=== PATIENT | female | born 1960 | race Caucasian/White ===

== ENCOUNTER 2017-01-02 09:31 | Outpatient (CLI) | payer BC ==
[~2017-01-02] VITALS: Ht 172.7 cm; Wt 104.5 kg
[2017-01-02] VITALS (14 sets, daily range): BP systolic 104–155; BP diastolic 68–101; PULSE 80–100
[~2017-01-02 09:31] MED LIST: ACTIVELLA TABLE1 TAB PO; ASPIRIN 81M81 MG/TA2 PO; CRESTOR5 MG PO; CYMBALTA 60MG60 MG PO; DARVOCET-N-101 UDTAB PO; EFFEXOR 75M75 MG/TAB PO; FETZIMA20 PO; FLEXERIL 1010 MG/TAB PO; FLOMAX 0.40.4 MG/CAP PO; FLONASE NASAL S16 GM NS; IMITREX100 MG PO; KLONOPIN 0.5MG0.5 MG PO; KLONOPIN WAFER0.5 MG PO; LIDODERM PATCH TP; LISINOPRIL/HCTZ1 TA2 PO; LORTAB 5/500 501 TAB PO; METOPROLOL SUCC25 MG PO; NORCO 325 MG-51 TAB PO; NORVASC 5MG5 MG/TAB PO; PREMPRO 0.45 MG1 TAB PO; PRINIVIL20 MG PO; PROTONIX 40MG T40 MG PO; PYRIDIUM 100MG100 MG PO; VESICARE10 MG PO; VICODIN PO
== END 2017-01-02 15:13 | disposition home or self-care (01) ==
LOC: COL.RAD 09:31
DX: J95.811 Postprocedural pneumothorax (principal); R91.8 Other nonspecific abnormal finding of lung field; Z85.820 Personal history of malignant melanoma of skin; Z85.3 Personal history of malignant neoplasm of breast; Z87.891 Personal history of nicotine dependence

== ENCOUNTER → 2017-04-09 | Outpatient (CLI) | payer BC | LOC: COL.RAD 11:01 | DX: M25.531 Pain in right wrist (principal); M25.831 Other specified joint disorders, right wrist | CPT/HCPCS: J3301; Q9967 ==

== ENCOUNTER → 2017-06-17 | Outpatient (CLI) | payer BC | LOC: COL.RAD 12:54 | DX: M25.531 Pain in right wrist (principal) | CPT/HCPCS: J3301; Q9967 ==

== ENCOUNTER → 2017-09-30 | Outpatient (CLI) | payer BC | LOC: COL.RAD 12:35 | DX: M25.531 Pain in right wrist (principal) | CPT/HCPCS: J3301; Q9967 ==

== ENCOUNTER → 2017-11-25 | Outpatient (CLI) | payer BC | LOC: COL.RAD 08:45 | DX: M25.531 Pain in right wrist (principal) | CPT/HCPCS: J3301; Q9967 ==